=== PATIENT | female | born 1975 | race Two or more races ===

== ENCOUNTER 2016-06-27 02:12 | Inpatient (IN) | payer MEDICAID, SELFPAY ==
[2016-06-27] MEDS ORDERED: NS 1,000 ML IV ONE (02:29)
[2016-06-27] MEDS ORDERED: MORPHINE 4 MG/ML INJECTION IV ONE (02:29)
[2016-06-27] MEDS ORDERED: ONDANSETRON HCL 4 MG/2 ML VIAL IV ONE (02:29)
[2016-06-27 02:30] VITALS: BMI 27.2
--- NOTE | 2016-06-27 02:34 | EDPRACDOC ---
- General Information Information Source: Patient Mode Of Arrival: Car - History of Present Illness Onset: YESTERDAY Pain Location: Reports: Epigastric Pain Context: Reports: Spontaneous Pain Severity: Moderate Pain Quality: Reports: Sharp, Stabbing Pain Radiation: Reports: No Radiation Last Menstrual Period: 06/09/16 : No Adult Abdominal History: Reports: Similar Pain (dx) (CHOLELITHIASIS) Female Abdominal History: Denies: Abdominal Surgery, UTI, Ectopic, PID, Urolithiasis, Similar Pain (dx) Modifying Factors: improves with: Nothing Female Associated Signs & Symptoms: Reports: Nausea, Vomiting Oral Intake: Decreased Urinary Output: Normal <Deedee Hollingsworth - Last Filed: 06/27/16 02:32> <Pavan Colon - Last Filed: 06/27/16 05:11> <Sher Kelly - Last Filed: 06/27/16 10:59> - General Information Chief Complaint: Abdominal Pain Stated Complaint: ABDOMINAL PAIN Time Seen by Provider: 06/27/16 02:25 Allergies/Adverse Reactions: Allergies Allergy/AdvReac Type Severity Reaction Status Date / Time No Known Allergies Allergy Verified 06/27/16 02:26 - History of Present Illness HPI: PT PRESENTS WITH EPIGASTRIC PAIN THAT SHE STATES IS WORSENING. PT RECENTLY HAD AN ULTRASOUND OF HER ABDOMEN AND WAS FOUND TO HAVE GALLSTONE AND GALLBLADDER WALL THICKENING. PT STATES SHE HAS NAUSEA AND VOMITING (Deedee Hollingsworth) ED Past Medical History - History Reviewed Yes Nurses notes reviewed and agree except as marked - Patient Medical History Psychological History: Denies: Depression - Social Medical History Smoking Status: Never smoker <Deedee Hollingsworth - Last Filed: 06/27/16 02:32> EDM Review of Systems - Review of Systems ROS Negative Except as Marked: Yes All systems reviewed and were negative except as marked <Deedee Hollingsworth - Last Filed: 06/27/16 02:32> - Physical Exam Constitutional: Alert Oriented to: Time, Person, Place - HEENT Head: Normal ( normocephalic) Eye Exam: Normal (PERRL, EOMI, Sclera white) Oropharynx: Normal (Pharynx:Moist without exudate,Gums-no swelling) Nose: No Symptoms Reported (septum midline) Neck: Normal (FROM, trachea at midline) - Respiratory/Cardiovascular Respiratory: Normal - CTA (BBS clear to auscultation without adventitious sounds ) Cardiovascular: Normal (RRR without murmur, gallop or rub) - GI Auscultation: Normal (NABS) Palpation: Normal (Soft,No rebound or guarding, non distended) Tenderness: Moderate, Epigastric Macario's Sign: Negative Rectal Exam: Deferred - Musculoskeletal Back: Normal (Non-Tender) Extremities: Normal (Normal tone, Pulses 2+ No cyanosis or edema, FROM) - Integumentary Skin: Normal, Warm, Dry Lymphatics: Normal (no adenopathy) - Neurologic Memory Impaired: Normal Motor Function: Normal (Normal tone, Pulses 2+ No cyanosis or edema, FROM) Cranial Nerve: Normal (CN II-X11 intact sensation, strength 5/5) Cerebellar: Normal Mood Description: Normal Perception: Normal <Deedee Hollingsworth - Last Filed: 06/27/16 02:32> - Differential Diagnosis Cholecystitis, Cholelithiasis - Results All Results Reviewed and Normal except as Highlighted below: Yes <Deedee Hollingsworth - Last Filed: 06/27/16 02:32> - Re-evaluation Re-evaluation 1 Re-evaluation Time: 05:11 - Results 06/27/16 02:35 06/27/16 02:35 <Pavan Colon - Last Filed: 06/27/16 05:11> - Results 06/27/16 02:35 06/27/16 10:15 <Sher Kelly - Last Filed: 06/27/16 10:59> - Re-evaluation Re-evaluation [address] SANTOS, RECOMMENDS U/S ABDOMEN FOR BETTER IMAGING BECAUSE IF PATIENT HAS GALLSTONE THEY WOULD REQUIRE ERCP AND CURRENTLY THERE IS LIMITED ABILITY OF OUR HOSPITAL TO PERFORM THESE. SO PATIENT MAY REQUIRE TRANSFER TO ANOTHER FACILITY TO APPROPRIATELY CARE FOR HER. (Pavan Colon) - Results WBC 6.0 xk/uL (3.8-10.8) 06/27/16 02:35 RBC 4.78 xM/uL (4.20-5.40) 06/27/16 02:35 Hgb 13.3 g/dL (12.0-16.0) 06/27/16 02:35 Hct 38.9 % (36-47) 06/27/16 02:35 MCV 81 fL (81-99) 06/27/16 02:35 MCH 27.8 pg (27-32) 06/27/16 02:35 MCHC 34.1 g/dl (33-36) 06/27/16 02:35 RDW 13.3 % (11.5-14.5) 06/27/16 02:35 Plt Count 229 xk/uL (130-400) 06/27/16 02:35 MPV 8.3 fL (7.4-10.4) 06/27/16 02:35 Neut % (Auto) 72.6 % (45-76) 06/27/16 02:35 Lymph % (Auto) 17.9 % (17-44) 06/27/16 02:35 Allen % (Auto) 7.4 % (3-10) 06/27/16 02:35 Eos % (Auto) 1.6 % (0-5) 06/27/16 02:35 Baso % (Auto) 0.5 % (0-2) 06/27/16 02:35 Absolute Neuts (auto) 4.32 xk/uL (1.7-8.2) 06/27/16 02:35 Absolute Lymphs (auto) 1.02 xk/uL (0.65-4.75) 06/27/16 02:35 Sodium 141 mEq/L (137-146) 06/27/16 10:15 Potassium 3.9 mEq/L (3.5-5.1) 06/27/16 10:15 Chloride 107 mEq/L (98-107) 06/27/16 10:15 Carbon Dioxide 23 mMOL/L (22-33) 06/27/16 10:15 Anion Gap 15 mEq/L (8-16) 06/27/16 10:15 BUN 8 MG/DL (7-17) 06/27/16 10:15 Creatinine 0.60 MG/DL (0.52-1.04) 06/27/16 10:15 Estimated GFR (MDRD) > 60 mL/min (>=60) 06/27/16 10:15 Glucose 100 MG/DL (70-99) H 06/27/16 10:15 Calculated Osmolality 269 MOs/Kg (270-290) L 06/27/16 10:15 Calcium 8.6 MG/DL (8.4-10.2) 06/27/16 10:15 Total Bilirubin 2.8 MG/DL (0.2-1.3) H 06/27/16 10:15 AST 748 IU/L (14-36) H 06/27/16 10:15 ALT 891 IU/L (9-52) H 06/27/16 10:15 Alkaline Phosphatase 176 IU/L (38-126) H 06/27/16 10:15 Total Protein 7.6 G/DL (6.3-8.2) 06/27/16 10:15 Albumin 4.3 G/DL (3.5-5.0) 06/27/16 10:15 Lipase 175 U/L (23-300) 06/27/16 02:35 Urine Color Dk yellow 06/27/16 10:08 Urine Clarity Clear 06/27/16 10:08 Urine pH 6.0 (5.0-8.0) 06/27/16 10:08 Ur Specific [place] 1.020 (1.003-1.035) 06/27/16 10:08 Urine Protein 1+ (NEG/TRACE) H 06/27/16 10:08 Urine Glucose (UA) Neg (NEGATIVE) 06/27/16 10:08 Urine Ketones Neg (NEGATIVE) 06/27/16 10:08 Urine Occult Blood Neg (NEG/TRACE) 06/27/16 10:08 Urine Nitrite Neg (NEGATIVE) 06/27/16 10:08 Urine Bilirubin 2+ (NEGATIVE) H 06/27/16 10:08 Urine Urobilinogen 2 MG/DL (0-1) H 06/27/16 10:08 Ur Leukocyte Esterase Neg (NEGATIVE) 06/27/16 10:08 Urine RBC 2-5 (0-5) 06/27/16 10:08 Urine WBC 0-2 (0-5) 06/27/16 10:08 Ur Epithelial Cells 1+ 06/27/16 10:08 Urine Bacteria Few (NEG/FEW) 06/27/16 10:08 Urine Test Neg (NEGATIVE) 06/27/16 10:08 Lab Results 06/27/16 06/27/16 06/27/16 10:15 10:08 10:08 WBC RBC Hgb Hct MCV MCH MCHC RDW Plt Count MPV Neut % (Auto) Lymph % (Auto) Allen % (Auto) Eos % (Auto) Baso % (Auto) Absolute Neuts (auto) Absolute Lymphs (auto) Sodium 141 Potassium 3.9 Chloride 107 Carbon Dioxide 23 Anion Gap 15 BUN 8 Creatinine 0.60 Estimated GFR (MDRD) > 60 Glucose 100 H Calculated Osmolality 269 L Calcium 8.6 Total Bilirubin 2.8 H AST 748 H ALT 891 H Alkaline Phosphatase 176 H Total Protein 7.6 Albumin 4.3 Lipase Urine Color Dk yellow Urine Clarity Clear Urine pH 6.0 Ur Specific [place] 1.020 Urine Protein 1+ H Urine Glucose (UA) Neg Urine Ketones Neg Urine Occult Blood Neg Urine Nitrite Neg Urine Bilirubin 2+ H Urine Urobilinogen 2 H Ur Leukocyte Esterase Neg Urine RBC 2-5 Urine WBC 0-2 Ur Epithelial Cells 1+ Urine Bacteria Few Urine Test Neg 06/27/16 06/27/16 02:35 02:35 WBC 6.0 RBC 4.78 Hgb 13.3 Hct 38.9 MCV 81 MCH 27.8 MCHC 34.1 RDW 13.3 Plt Count 229 MPV 8.3 Neut % (Auto) 72.6 Lymph % (Auto) 17.9 Allen % (Auto) 7.4 Eos % (Auto) 1.6 Baso % (Auto) 0.5 Absolute Neuts (auto) 4.32 Absolute Lymphs (auto) 1.02 Sodium 140 Potassium 3.5 Chloride 103 Carbon Dioxide 24 Anion Gap 17 H BUN 10 Creatinine 0.60 Estimated GFR (MDRD) > 60 Glucose 106 H Calculated Osmolality 268 L Calcium 9.3 Total Bilirubin 3.2 H AST 935 H ALT 762 H Alkaline Phosphatase 157 H Total Protein 7.9 Albumin 4.4 Lipase 175 Urine Color Urine Clarity Urine pH Ur Specific [place] Urine Protein Urine Glucose (UA) Urine Ketones Urine Occult Blood Urine Nitrite Urine Bilirubin Urine Urobilinogen Ur Leukocyte Esterase Urine RBC Urine WBC Ur Epithelial Cells Urine Bacteria Urine Test (Pavan Colon) (Sher Kelly) - Departure Education/Counseling Given To: Patient Education/Counseling Given Regarding: Diagnosis, Treatment, Prognosis, Follow Up <Deedee Hollingsworth W - Last Filed: 06/27/16 02:32> <Pavan Colon - Last Filed: 01/07/17 05:11> - Departure Yes I personally saw and evaluated the patient. Disposition: Admit IP To This Hospital Decision to Admit Time: 10:58 Decision to admit date: 06/27/16 Decision to admit: from ED - Physician Consulted Surgery Time Called: :58 Provider Called: Franklyn Santos Time [employer]pape[employer] Helper Returned Call: 10:58 <Sher Kelly - Last Filed: 06/27/16 10:59> - Departure Condition: Stable Final Diagnosis: Cholelithiasis with obstruction Qualifiers: Cholecystitis presence: without cholecystitis Qualified Code(s): K80.21 - Calculus of gallbladder without cholecystitis with obstruction
[2016-06-27 02:52] LABS: AUTOMATED BASOPHIL 0.5 % (0-2); AUTOMATED EOSINOPHIL 1.6 % (0-5); AUTOMATED LYMPH 17.9 % (17-44); AUTOMATED MONOCYTE 7.4 % (3-10); AUTOMATED NEUTROPHIL 72.6 % (45-76); MPV 8.3 fL (7.4-10.4)
[2016-06-27] MEDS ORDERED: Pharmacy Review for Metformin - IV Contrast Given SCH (03:00)
[2016-06-27 03:03] LABS: BLOOD UREA NITROGEN 10 MG/DL (7-17); CALCIUM 9.3 MG/DL (8.4-10.2); CHLORIDE 103 mEq/L (98-107); GLUCOSE 106 MG/DL (70-99); TOTAL PROTEIN 7.9 G/DL (6.3-8.2)
[2016-06-27 03:19] LABS: CALCULATED OSMOLALITY 268 MOs/Kg (270-290); SODIUM LEVEL 140 mEq/L (137-146)
--- NOTE | 2016-06-27 03:46 | DIRPT ---
CLINICAL DATA: Acute onset of epigastric abdominal pain, nausea and vomiting. EXAM: CT ABDOMEN AND PELVIS WITH CONTRAST TECHNIQUE: Multidetector CT imaging of the abdomen and pelvis was performed using the standard protocol following bolus administration of intravenous contrast. CONTRAST: 100 mL of Isovue 370 IV contrast COMPARISON: Abdominal ultrasound performed 05/19/2016 FINDINGS: Minimal bibasilar atelectasis is noted. The liver and spleen are unremarkable in appearance. The gallbladder is within normal limits. The pancreas and adrenal glands are unremarkable. The kidneys are unremarkable in appearance. There is no evidence of hydronephrosis. No renal or ureteral stones are seen. No perinephric stranding is appreciated. No free fluid is identified. The small bowel is unremarkable in appearance. The stomach is within normal limits. No acute vascular abnormalities are seen. The appendix is normal in caliber, without evidence of appendicitis. The colon is unremarkable in appearance. The bladder is mildly distended and grossly remarkable. The uterus is unremarkable in appearance, with an intrauterine device noted in expected position at the fundus of the uterus. The ovaries are grossly symmetric. No suspicious adnexal masses are seen. No inguinal lymphadenopathy is seen. No acute osseous abnormalities are identified. Facet disease is noted at the lower lumbar spine. IMPRESSION: Unremarkable contrast-enhanced CT of the abdomen and pelvis. Electronically Signed By: Jc Allison M.D. On: 06/27/2016 03:43
--- NOTE | 2016-06-27 07:45 | DIRPT ---
CLINICAL DATA: Patient with right upper quadrant abdominal pain. Elevated LFTs. EXAM: US ABDOMEN LIMITED - RIGHT UPPER QUADRANT COMPARISON: None. FINDINGS: Gallbladder: The gallbladder is full of shadowing echogenic stones. No gallbladder wall thickening. No pericholecystic fluid. Negative sonographic Macario's sign. Common bile duct: Diameter: 3 mm Liver: No focal lesion identified. Within normal limits in parenchymal echogenicity. IMPRESSION: Large amount of shadowing echogenic stones demonstrated within the gallbladder lumen. No secondary signs to suggest acute cholecystitis. Electronically Signed By: Woody Pedro M.D. On: 06/27/2016 07:42
[2016-06-27 10:27] LABS: LEUKOCYTES/URINE NEG (NEGATIVE); NITRITE/URINE NEG (NEGATIVE); URINE OCCULT BLOOD NEG (NEG/TRACE); WBC/URINE 0-2 (0-5)
[2016-06-27 10:49] LABS: BLOOD UREA NITROGEN 8 MG/DL (7-17); CALCIUM 8.6 MG/DL (8.4-10.2); CALCULATED OSMOLALITY 269 MOs/Kg (270-290); CHLORIDE 107 mEq/L (98-107); GLUCOSE 100 MG/DL (70-99); SODIUM LEVEL 141 mEq/L (137-146); TOTAL PROTEIN 7.6 G/DL (6.3-8.2)
[2016-06-27] MEDS ORDERED: ACETAMINOPHEN 650 MG SUPP PR PRN (12:23)
[2016-06-27] MEDS ORDERED: ACETAMINOPHEN 325 MG/TAB TABLET PO PRN (12:23)
[2016-06-27] MEDS ORDERED: SIMETHICONE 80 MG TAB PO PRN (12:23)
[2016-06-27] MEDS ORDERED: MAGNESIUM HYDROXIDE 30 ML BOTTLE PO PRN (12:23)
[2016-06-27] MEDS ORDERED: MORPHINE 2 MG/ML INJECTION IV PRN (12:23)
[2016-06-27] MEDS ORDERED: PROMETHAZINE 25 MG/ML VIAL IV PRN (12:23)
[2016-06-27] MEDS ORDERED: DIPHENHYDRAMINE 25 MG CAP PO PRN (12:23)
[2016-06-27] MEDS ORDERED: Albuterol/Ipratropium Neb 3 ML NEB NEB PRN (12:23)
[2016-06-27] MEDS ORDERED: Aluminum;Magnesium;Simethicone 30 ML UDC PO PRN (12:23)
--- NOTE | 2016-06-27 13:04 | HISTPHYS ---
- Chief Complaint epigastric abdominal pain - History of Present Illness The patient is a 41 year old female with epigastric abdominal pain that started on June 26, 2016 in the evening. The patient reports that she had associated nausea and vomiting. She denies previous occurrences. She reports that she has no pain currently. - Medical History Cardiac History: Denies: No Significant History, Coronary Artery Disease, Atrial Fibrillation, Hypertension, Congestive Heart Failure, Heart Attack, Cardiac Catheterization, CABG, Stress Test, Hypercholesterolemia, Internal Defibrillator, Pacemaker, Cardiomyopathy, Valvular Heart Disease, Syncope, SVT, Other Respiratory History: Denies: No Significant History, Asthma, COPD, Bronchitis, Asbestosis, Aspiration Pneumonia, Cough, Chronic Bronchitis, Pneumonia, Emphysema, Pulmonary Embolism, Other GI/ History: Denies: No Significant History, Renal Disease, Renal Failure, Renal (Kidney) Cancer, Kidney (Renal Surgery), Urinary Tract Infection, Kidney Stones, Liver Failure, Gastroesophageal Reflux, Ulcer, IBD, Diverticulosis, Pancreatitis, BPH, PMH GI Yes/No Other Musculoskeletal History: Denies: No Significant History, Arthritis, Gout, Rheumatoid Arthritis, Osteoarthritis, Other Systemic History: Denies: No Significant History, Cancer, Anemia, Diabetes, Hyperthyroidism, Hypothyroidism, HIV, Lupus, Other Neurological History: Denies: No Significant History, Cerebrovascular Accident, Seizures, Migraine, Dementia, Epilepsy, Guillian-Chandler Syndrome, Parkinson's, Metabolic encephalopathy, Multiple Sclerosis, Myasthenia Gravis, Toxic Encephalopathy, Other - Surgical History Denies: No Significant History, Appendectomy, Cholecystectomy, CABG, Hysterectomy, Angioplasty, Cardiac Catheterization, Hernia Surgery, Tonsillectomy, Tonsillectomy/Adnoidectomy, Other - Medictions/Allergies Allergies No Known Allergies Allergy (Verified 06/27/16 02:26) Current Medication List: Reviewed Home Medications No Home Medications 06/27/16 - Family History Denies: No Significant History, Hypertension, Diabetes, Cancer, Stroke, Cardiac Disorders, Respiratory Disorders, Renal Disease, Blood Disorders, Other - Social History Travel Outside of [place] in the Last 3 Months?: No Lives: With Family Smoking Status: Never smoker Social History: Denies: Amphetamine Use, Alcohol Use, Barbiturate Use, Benzodiazipine Use, Cocaine Use, Heroin Use, Marijuana Use, Methadone Use, MDMA (Ecstasy) Use, Substance Use Disorder - Review of Systems Yes All systems reviewed and were negative except as marked (twelve systems reviewed with the patient.) - Physical Exam Vital Signs: Initial Vitals Temperature 97.4 F L 06/27/16 02:26 Pulse Rate 66 06/27/16 02:26 Respiratory Rate 20 06/27/16 02:26 Blood Pressure 121/59 L 06/27/16 02:26 Pulse Oxygen Saturation 96 06/27/16 02:26 Constitutional: Alert (Awake, Fully oriented. Normal and appropriate affect.Well appearing. Well nourished.), No apparent distress Oriented to: Time, Person, Place - HEENT Head: Normal (normocephalic, atraumatic.), Other (No cervical lymphadenopathy. No supraclavicular lymphadenopathy. Neck: No palpable mass, supple , trachea midline.) Eye: Normal (pupils equal, reactive to light, and round; EOMI, Sclera white) Oropharynx: Normal (Pharynx: Moist without exudate,Gums-no swelling, No oropharyngeal lesions or erythema, Mucous membranes are dry.) ENT EAC: Normal (No oropharyngeal lesions or erythema. Mucous membranes are dry. ) Nose: No Symptoms Reported (septum midline, Nares patent, without discharge or bleeding.) Respiratory: Normal - CTA (Clear to auscultation bilaterally. No wheezing, rales , rhonchi. Chest wall movements are symmetric. No use of accessory muscles to breathe.) Cardiovascular: Normal (RRR , Normal S1, S2. No murmurs, rubs, or gallops. PMI non-displaced. Carotids: no carotid bruits. No bradycardia or tachycardia. DP pulses 2+ bilaterally.) - GI Auscultation: Normal (normal active sounds) Palpation: Normal (Soft,non distended,nontender. No hepatosplenomegaly.) Tenderness: Mild, Epigastric Macario's Sign: Negative - Exam Deferred: Yes - Musculoskeletal Back: Normal (Non-Tender) Extremities: Normal (Normal tone, DP pulses 2+ bilaterally, No cyanosis or edema bilaterally, FROM bilaterally.) - Integumentary Skin: Normal (Clean, dry, and intact. No rashes. No lesions.) Lymphatics: Normal (No cervical lymphadenopathy. No supraclavicular lymphadenopathy.) - Neurologic Memory Impaired: Normal Motor Function: Normal (Motor 5/5 throughout.Normal tone, Pulses 2+ No cyanosis or edema, FROM) Cranial Nerve: Normal (CN II-XII intact sensation, strength 5/5) Cerebellar: Normal (Babinski: toes downgoing bilaterally. Intact Finger to nose. Sensory grossly intact to light touch. Intact rapid alternating movements bilaterally. No pronator drift.) Mood Description: Normal (Fully oriented. Normal and appropriate affect.) Perception: Normal (Normal and appropriate affect.) - Lab Results 06/27/16 02:35 06/27/16 10:15 - Diagnostic Findings Final Report CLINICAL DATA: Patient with right upper quadrant abdominal pain. Elevated LFTs. EXAM: US ABDOMEN LIMITED - RIGHT UPPER QUADRANT COMPARISON: None. FINDINGS: Gallbladder: The gallbladder is full of shadowing echogenic stones. No gallbladder wall thickening. No pericholecystic fluid. Negative sonographic Macario's sign. Common bile duct: Diameter: 3 mm Liver: No focal lesion identified. Within normal limits in parenchymal echogenicity. IMPRESSION: Large amount of shadowing echogenic stones demonstrated within the gallbladder lumen. No secondary signs to suggest acute cholecystitis. Electronically Signed By: Woody Pedro M.D. On: 06/27/2016 07:42 - Assessment/Plan (1) Cholelithiasis with chronic cholecystitis K80.10 - CALCULUS OF GALLBLADDER W CHRONIC CHOLECYST W/O OBSTRUCTION Chronic Present on Admission: Yes gallbladder Comment: We will plan for laparoscopic cholecystectomy with intraoperative cholangiogram , possible open incision when acute infection has resolved. The current treatment plan was discussed with the patient and the patient's . All questions were answered. They voiced understanding and agreement. Case Care Discussed with: Patient, Family
[2016-06-27] MEDS: LR 1,000 ML IV SCH ×2 (13:44→23:14)
[2016-06-27] MEDS: ERTAPENEM 1 GM in NS 100 ML IV SCH (13:44)
[2016-06-27] MEDS ORDERED: Vaccine Screening Complete SCH (14:00)
[2016-06-27] MEDS: ONDANSETRON HCL 4 MG/2 ML VIAL IV PRN (15:12)
[2016-06-27] MEDS: OXYCODONE HCL 5 MG TABLET PO PRN (18:36)
[2016-06-27] MEDS: IBUPROFEN 600 MG TAB PO PRN (19:17)
[2016-06-28] MEDS ORDERED: FLU VACCINE (Afluria) 0.5 ML DOSE IM ONE (08:00)
[2016-06-28] MEDS: LR 1,000 ML IV SCH ×3 (11:07→22:09)
[2016-06-28] MEDS: ERTAPENEM 1 GM in NS 100 ML IV SCH (14:49)
--- NOTE | 2016-06-28 17:42 | PCM.SURGRO ---
- Subjective Chief Complaint: no complaints Hospital Day #: 2 (cholecystitis with cholelithiasis) Patient: Reports: Feels better (Patient reports that she feels much better. She denies abdominal pain.), Pain is less, Tolerating Regular Diet, Voiding without difficulty, No Bowel Movement, Afebrile, Ambulating in Room. Denies: Nausea, Vomiting, Shortness of breath - Objective / Physical Exam Vital Signs: Temperature: 98.0 F (06/28/16 16:56) HR: 56 (06/28/16 16:56)RR: 20 (06/28/16 16: 56) BP: 102/66 (06/28/16 16:56)Pulse Ox: 94 (06/28/16 16:56) General: Alert, Oriented x3, Cooperative, No acute distress HEENT: Normal, Anicteric Sclera, Mucous membr. moist/pink Respiratory: Normal - CTA Cardiovascular: Regular rate and rhythm Gastrointestinal: Soft, Bowel Sounds. negative: Distended, Tender, Guarding, Firm, Rigid, Hernia Extremities: negative: Swelling, Edema Psych/Mental Status: Appropriate, Normal Affect, Cooperative. negative: Agitated, Anxious Neurological: Normal speech Lymphatics: Normal - Assessment and Plan (1) Cholelithiasis with chronic cholecystitis Chronic K80.10 - CALCULUS OF GALLBLADDER W CHRONIC CHOLECYST W/O OBSTRUCTION Present on Admission: Yes gallbladder Comment/Plan: We will plan for laparoscopic cholecystectomy with intraoperative cholangiogram , possible open incision. The indications, benefits and risks associated with the operation were discussed with the patient and the patient's . All questions were answered. We will plan for follow up comprehensive metabolic panel in the morning to evaluate for residual choledocholithiasis.
[2016-06-29] MEDS: LR 1,000 ML IV SCH ×3 (07:28→17:48)
[2016-06-29 07:41] LABS: BLOOD UREA NITROGEN 6 MG/DL (7-17); CALC CORRECTED 9.6 MG/DL (8.4-10.2); CALCIUM 9.1 MG/DL (8.4-10.2); CALCULATED OSMOLALITY 267 MOs/Kg (270-290); CHLORIDE 105 mEq/L (98-107); GLUCOSE 90 MG/DL (70-99); SODIUM LEVEL 140 mEq/L (137-146); TOTAL PROTEIN 6.4 G/DL (6.3-8.2)
[2016-06-29] MEDS ORDERED: FLU VACCINE (Afluria) 0.5 ML DOSE IM ONE (08:00)
--- NOTE | 2016-06-29 12:08 | PCM.SURGRO ---
- Subjective Chief Complaint: no complaints Hospital Day #: 3 (cholecystitis with cholelithiasis) Patient: Reports: Feels better (Patient denies abdominal pain currently.), Pain is less, Tolerating liquids well, Voiding without difficulty, No Flatus, Afebrile, Ambulating in Room. Denies: Nausea, Vomiting, Shortness of breath - Objective / Physical Exam Vital Signs: Temperature: 98.1 F (06/29/16 09:13) HR: 59 (06/29/16 09:13)RR: 20 (06/29/16 09: 13) BP: 109/68 (06/29/16 09:13)Pulse Ox: 96 (06/29/16 09:13) General: Alert, Oriented x3, Cooperative, No acute distress HEENT: Normal, Mucous membr. moist/pink Respiratory: Normal - CTA Cardiovascular: Regular rate and rhythm Gastrointestinal: Soft, Bowel Sounds. negative: Distended, Tender, Guarding, Firm, Rigid, Hernia Extremities: negative: Swelling, Clubbing Psych/Mental Status: Appropriate, Normal Affect, Cooperative. negative: Agitated, Anxious Neurological: Normal speech Skin: Warm,Dry and Intact, No rashes - Assessment and Plan (1) Cholelithiasis with chronic cholecystitis Chronic K80.10 - CALCULUS OF GALLBLADDER W CHRONIC CHOLECYST W/O OBSTRUCTION Present on Admission: Yes gallbladder Comment/Plan: We will plan for laparoscopic cholecystectomy with intraoperative cholangiogram , possible open incision. The indications, benefits and risks associated with the operation were discussed with the patient. All questions were answered. Informed consent was obtained. - Review of Systems Yes All systems reviewed and were negative except as marked (twelve systems reviewed with the patient.)
[2016-06-29] MEDS: ERTAPENEM 1 GM in NS 100 ML IV SCH (13:14)
[2016-06-30] MEDS: LR 1,000 ML IV SCH ×3 (05:29→15:41)
[2016-06-30] MEDS ORDERED: BUPIVACAINE 0.5% 30 ML VIAL ONE (08:39)
[2016-06-30] MEDS ORDERED: ISOVUE-300 (61%) 50 ML ONE (08:39)
[2016-06-30] MEDS ORDERED: FENTANYL 100 MCG/2 ML VIAL IV PRN (08:44)
[2016-06-30] MEDS ORDERED: ONDANSETRON HCL 4 MG ODT TAB PO PRN (08:44)
[2016-06-30] MEDS ORDERED: ONDANSETRON HCL 4 MG/2 ML VIAL IV PRN (08:44)
[2016-06-30] MEDS ORDERED: hydrALAZINE 20 MG/ML VIAL IV PRN (08:44)
[2016-06-30] MEDS ORDERED: HYDROmorphone 1 MG INJECTION IV PRN ×2 (08:44)
[2016-06-30] MEDS ORDERED: MEPERIDINE 25 MG/ML TUBEX IV PRN (08:44)
[2016-06-30] MEDS ORDERED: PROMETHAZINE 25 MG/ML VIAL IV PRN ×2 (08:44)
[2016-06-30] MEDS ORDERED: LABETALOL 20 MG/4 ML SYRINGE IV PRN (08:44)
--- NOTE | 2016-06-30 08:45 | SC.ANESPOS ---
Post-Anesthesia Note LOC: [place] on Calling Post-Anesthesia Assessment: Awake, Returned to Baseline, Hemodynamically Stable , Pain Control Adequate Phase I & II Recovery Complete: Yes Apparent Anesthesia Complication: No : N - Vital Signs Blood Pressure: 105/60 Pulse: 52 Resp Rate: 20 O2 Sat: 96 Temp: 98.1 F
--- NOTE | 2016-06-30 09:27 | HIM.ANES ---
Anesthesia Evaluation & Plan - Focused Review of Systems Now: No Cardiac History: No: Hx Hypertension, Hx Heart Attack, Hx Cardiac Catheterization, Hx Angioplasty, Hx Pacemaker, Hx Congestive Heart Failure, Hx Coronary Artery Bypass Graft, Hx of SVT Respiratory: No: Hx Asthma, Hx Emphysema, Hx Chronic Obstructive Pulmonary Disease (COPD) , Hx Pneumonia Gastrointestinal: No: Hx Pancreatitis, Hx Diverticulosis Genitourinary: No: Hx Renal Disease, Hx Renal Failure Neurological/Musculoskeletal: No: HX Cerebrovascular Accident, Hx Dementia, Hx Seizures, Hx Syncope Psychological: No Hx Depression Endocrine: No: Hx Hyperthyroidism, Hx Hypothyroidism Blood/Autoimmune: No: Hx Anemia Smoking Status: Never smoker Past Social History: Denies: Amphetamine Use, Alcohol Use, Barbiturate Use, Benzodiazipine Use, Cocaine Use, Heroin Use, Marijuana Use, Methadone Use, MDMA (Ecstasy) Use, Substance Use Disorder Hx Stress Test (date): No Hx Echocardiogram (date): No Hx Chest Xray (date): No Surgical History: No: CABG, T&A, Appendectomy, Cholecystectomy, Other - Focused Physical Exam NPO since: Midnight Mallampati: Class II Thyromental Distance: Greater than 3 Neck: Full Range of Motion Dental: Normal - no significant findings Cardiovascular/Chest: Normal Respiratory: Lungs clear Any problems with anesthesia, including nausea and vomiting?: No Any relatives with a history of Malignant Hyperthermia?: No Does patient have a history of Malignant Hyperthermia?: No Beta Merly given (if appropriate): N/A Other: Problem List Problem Status Onset Cholelithiasis with obstruction Acute Cholelithiasis with chronic cholecystitis Chronic PT/PTT/INR/ Urine Test Neg (NEGATIVE) 06/27/16 10:08 CBC/BMP/Other 06/29/16 07:00 Allergies Allergy/AdvReac Type Severity Reaction Status Date / Time No Known Allergies Allergy Verified 06/27/16 02:26 Home Medications Medication Instructions Recorded Last Taken Type No Home Medications 06/27/16 Unknown History Height and Weight Patient's weight 148 lb 8 oz Weight (Calculated Kilograms) 67.358 Vital Signs Temperature 98.4 F 06/30/16 08:47 Pulse Rate 64 06/30/16 08:47 Respiratory Rate 18 06/30/16 08:47 Blood Pressure 105/61 06/30/16 08:47 Pulse Oxygen Saturation 99 06/30/16 08:47 - Anesthetic Plan Anesthesia Type: General ASA Class: 2 -: I have examined this patient and reviewed the medical record. The patient has been assessed prior to anesthesia. Risks and benefits of anesthesia and anesthetic technique options have been discussed and all questions answered. The patient accepts the risk and desires me to proceed with the planned anesthetic.
[2016-06-30] MEDS ORDERED: METOCLOPRAMIDE 10 MG/2 ML VIAL IV ONE (10:00)
[2016-06-30] MEDS ORDERED: ROCURONIUM 50 MG/5 ML VIAL IV ONE (10:00)
[2016-06-30] MEDS ORDERED: LIDOCAINE 100 MG PFS IV ONE (10:00)
[2016-06-30] MEDS ORDERED: PROPOFOL 200 MG/20 ML VIAL IV ONE (10:00)
[2016-06-30] MEDS ORDERED: GLYCOPYRROLATE 1 MG VIAL IM ONE (10:00)
[2016-06-30] MEDS ORDERED: ONDANSETRON HCL 4 MG/2 ML VIAL IV ONE (10:00)
[2016-06-30] MEDS ORDERED: FENTANYL 250 MCG/5 ML VIAL IV ONE (10:00)
[2016-06-30] MEDS ORDERED: SUCCINYLCHOLINE 20 MG/1 ML INJ 10 ML MDV IV ONE (10:00)
[2016-06-30] MEDS ORDERED: NEOSTIGMINE 1 MG/1 ML (1:1000) INJ 10 ML MDV IM ONE (10:00)
[2016-06-30] MEDS ORDERED: KETOROLAC TROMETH 30 MG/ML VIAL IM ONE (10:00)
[2016-06-30] MEDS ORDERED: MIDAZOLAM 2 MG/2 ML VIAL IV ONE (10:00)
[2016-06-30] MEDS ORDERED: DEXAMETHASONE 4 MG/ML VIAL IV ONE (10:00)
--- NOTE | 2016-06-30 12:09 | HIMOPRPT ---
DATE OF PROCEDURE: 06/30/16 PREOPERATIVE DIAGNOSIS: Chronic cholecystitis with cholelithiasis. POSTOPERATIVE DIAGNOSIS: Chronic cholecystitis with cholelithiasis. PROCEDURE: Laparoscopic cholecystectomy with intraoperative cholangiogram SURGEON: Franklyn Driver DO. ANESTHESIA: General endotracheal. ANESTHESIOLOGIST: Dr. Ravindra Martinez SPECIMEN: Gallbladder and contents. SPONGE COUNT: Correct. PACKINGS AND DRAINS: 19 macedonian Joaquim drain in the right upper quadrant PATIENT CONDITION: Stable. ESTIMATED BLOOD LOSS: 5 ml INDICATIONS: This is a 41-year-old female with right upper quadrant and epigastric abdominal pain. Ultrasound demonstrated gallstones. It was recommend to this patient, laparoscopic cholecystectomy with intraoperative cholangiogram, possible open incision. The risks associated with operation were discussed with the patient and the patient's family in detail. These risks include, but not limited to bleeding, infection, port site herniation, injury to intra-abdominal blood vessels, injury to small and large intestine, deep vein thrombosis, resultant pulmonary embolism, perioperative cardiac and respiratory morbidity and mortality, injury to common bile duct resulting in need for reoperation, injury to intrahepatic bile duct resulting in need for percutaneous drainage, possible endoscopic retrograde cholangiopancreatography. All questions were answered and informed consent was obtained. FINDINGS: Gallbladder was moderately distended. Minimal omental adhesions of the gallbladder. On intraoperative cholangiogram, no contrast passage past the cystic duct. The liver was very large with a large left lobe of the liver. OPERATIVE AND TECHNIQUE: With consent, the patient was taken to the operative suite at [facility] and placed in supine position. General anesthesia was induced. Having successful completion of this, the anterior abdomen was sterilely prepped and draped in usual fashion. All members of surgical team were in agreement of correct patient and correct procedure. Curvilinear incision was made inferior to the umbilicus, carried down to the fascial layers entering the peritoneal cavity under direct visualization. It was insufflated to 15 mmHg and kept at or below this pressure at all times during the course of surgery. A total of 4 accessory ports were placed in the right upper quadrant each 5 mm in size, each placed under laparoscopic visualization. An additional 5 mm accessory port was placed in the left upper quadrant to place a liver retractor as the patient had a very large left lobe of the liver that was obstructing the view of the gallbladder. Gallbladder was grasped and elevated. Omental adhesions were removed utilizing gentle blunt dissection staying very close to the gallbladder. Cystic duct and cystic artery were circumferentially isolated. Gallbladder cystic duct junction was clearly visualized. Intraoperative cholangiogram was performed with Phani cholangiocatheter, findings as described above. Once again, the cystic duct circumferentially isolated. Three metallic clips were placed across then transected, leaving 2 on the stump and 1 on the specimen. Cystic artery was circumferentially isolated. Three metallic clips were placed across and then transected, leaving 2 on the stump and 1 on the specimen. Hemostasis was excellent. Gallbladder was removed from liver bed utilizing electrocautery, placed in Endobag, removed the body and passed off as specimen. Of note, the fascial incision at the umbilicus required extension superiorly to remove the very large gallbladder filled with gallstones. Right upper quadrant was vigorously irrigated and aspirated dry. Clips were visualized in place. No evidence of arterial or venous bleeding. No evidence of bile duct leakage. A 19 macedonian Joaquim drain was placed in the right upper quadrant as there was incomplete cholangiogram. Accessory port sites were hemostatic on removal. CO2 gas was allowed to escape in the peritoneal cavity. Fascia was closed with [id number] 0 Vicryl sutures times x2. Skin was closed with 4-0 Monocryl subcuticular stitch. After infiltration of anesthetic, Dermabond was applied. Sterile occlusive dressing was applied over this. Anesthesia was reversed. Mrs. Jackson Fowler was taken to recovery, having tolerated the procedure well.
--- NOTE | 2016-06-30 12:10 | HIMOPRPT ---
DATE OF PROCEDURE: 06/30/16 Preoperative diagnosis: Cholelithiasis with chronic cholecystitis Postoperative diagnosis: Cholelithiasis with chronic cholecystitis, final pathology pending Procedure: Intraoperative cholangiography under fluoroscopic guidance Surgeon: Franklyn Driver DO Anesthesia: General ANESTHESIOLOGIST: Dr. Ravindra Martinez Blood loss: None Packings and drains: None Complications: None Operative findings and technique: During the course of laparoscopic cholecystectomy by Dr. Driver, intraoperative cholangiography was performed under fluoroscopic guidance. Fluoroscopic images reveal a cholangiocatheter on the infundibulum of the gallbladder. Contrast dye is noted to fill the infundibulum. Contrast dye does not pass out of the gallbladder. Impression: Intraoperative cholangiography as above.
[2016-06-30] MEDS ORDERED: FENTANYL 100 MCG/2 ML VIAL ONE (13:19)
[2016-06-30] MEDS: FENTANYL 100 MCG/2 ML VIAL IV PRN ×2 (13:22→13:33)
[2016-06-30] MEDS: ERTAPENEM 1 GM in NS 100 ML IV SCH (14:10)
[2016-06-30] MEDS: ONDANSETRON HCL 4 MG/2 ML VIAL IV PRN (14:46)
--- NOTE | 2016-06-30 16:03 | DIRPT ---
CLINICAL DATA: Cholelithiasis EXAM: INTRAOPERATIVE CHOLANGIOGRAM TECHNIQUE: Cholangiographic images from the C-arm fluoroscopic device were submitted for interpretation post-operatively. Please see the procedural report for the amount of contrast and the fluoroscopy time utilized. COMPARISON: Ultrasound 06/27/2016 FINDINGS: Multiple filling defects in the lumen of the gallbladder. No significant opacification of the intra or extrahepatic biliary tree beyond the cystic duct. : 1. Non opacification of the intra or extrahepatic biliary tree, such that choledocholithiasis cannot be excluded. Electronically Signed By: Rashaun Chua M.D. On: 06/30/2016 16:00
[2016-06-30] MEDS: IBUPROFEN 600 MG TAB PO PRN (19:35)
[2016-06-30] MEDS: OXYCODONE HCL 5 MG TABLET PO PRN (21:16)
[2016-07-01] MEDS: LR 1,000 ML IV SCH (02:24)
[2016-07-01 03:28] VITALS: TEMP 98.1
[2016-07-01 06:51] LABS: AUTOMATED BASOPHIL 0.2 % (0-2); AUTOMATED EOSINOPHIL 0.1 % (0-5); AUTOMATED LYMPH 20.5 % (17-44); AUTOMATED MONOCYTE 5.9 % (3-10); AUTOMATED NEUTROPHIL 73.3 % (45-76); MPV 8.1 fL (7.4-10.4)
[2016-07-01 07:39] LABS: BLOOD UREA NITROGEN 7 MG/DL (7-17); CALC CORRECTED 9.6 MG/DL (8.4-10.2); CALCIUM 8.7 MG/DL (8.4-10.2); CALCULATED OSMOLALITY 263 MOs/Kg (270-290); CHLORIDE 105 mEq/L (98-107); GLUCOSE 87 MG/DL (70-99); SODIUM LEVEL 138 mEq/L (137-146); TOTAL PROTEIN 5.9 G/DL (6.3-8.2)
[2016-07-01] MEDS: OXYCODONE HCL 5 MG TABLET PO PRN (07:50)
[2016-07-01] MEDS: IBUPROFEN 600 MG TAB PO PRN (08:46)
[2016-07-01 12:22] VITALS: BP 84/50; PULSE 50
[2016-07-01] MEDS ORDERED: NS 500 ML IV ONE (12:24)
--- NOTE | 2016-07-01 12:27 | PCM.DCS92 ---
- Final/Secondary Discharge Diagnosis (1) Cholelithiasis with chronic cholecystitis Chronic K80.10 - CALCULUS OF GALLBLADDER W CHRONIC CHOLECYST W/O OBSTRUCTION Present on Admission: Yes gallbladder Discharge Disposition: Home Discharge Condition: Improved Cognitive Discharge Status: Unimpaired Fuctional Discharge Status: Independent Physician Follow up/Referrals: Franklyn Driver DO [Staff Physician] - One Week New Prescriptions: Oxycodone Immediate Release [Oxy-Ir] 5 mg PO Q6H PRN #40 tab PRN Reason: Pain Promethazine [Phenergan] 25 mg PO Q4H PRN #30 tab PRN Reason: Nausea/Vomiting Additional Instructions: empty and record drain output daily. incentive spirometer every hour while awake Diet at Discharge: As Tolerated, Regular Activity: No Heavy Lifting, No Driving Call Office For: Worsening Symptoms, Wound is Draining Pus, Fever over 101 F, Wound is Painful, Wound is Red, Pain Uncontrolled By Meds, Other (See Details) ( chest pain or difficulty breathing) Discontinue use of:: Alcohol, All Illegal Substances, All Types of Tobacco - DC Summary Notes Hospital Course Note:: Discharge summary on patient named MINO COTTO admitted to [facility] on 06/27/16 by Franklyn Driver DO. The patient was diagnosed with cholecystitis with cholelithiasis. Please see history and physical. The patient underwent laparoscopic cholecystectomy with intraoperative cholangiogram. Please see operative report for full details. Postoperatively, the patient's diet and activity were slowly advanced, which she was able to tolerate. Full and careful discharge instructions were discussed with the patient. All questions were answered. Date of discharge is 07/01/16. Discharge condition: stable Final discharge diagnosis: cholecystitis with cholelithiasis Wound Care Surgical Site: Yes May Shower Starting:: 07/01/16 Remove Clear Dressing In How Many Days?: 7 Remove Gauze Dressing in How Many Days?: 7 Ability To Perform Care (if applicable): Yes - Physical Exam Vital Signs: Initial Vitals Temperature 97.4 F L 06/27/16 02:26 Pulse Rate 66 06/27/16 02:26 Respiratory Rate 20 06/27/16 02:26 Blood Pressure 121/59 L 06/27/16 02:26 Pulse Oxygen Saturation 96 06/27/16 02:26 Constitutional: Alert (Awake, Fully oriented. Normal and appropriate affect.Well appearing. Well nourished.), No apparent distress Oriented to: Time, Person, Place - HEENT Head: Normal (normocephalic, atraumatic.), Other (No cervical lymphadenopathy. No supraclavicular lymphadenopathy. Neck: No palpable mass, supple , trachea midline.) Eye: Normal (pupils equal, reactive to light, and round; EOMI, Sclera white) Oropharynx: Normal (Pharynx: Moist without exudate,Gums-no swelling, No oropharyngeal lesions or erythema, Mucous membranes are dry.) TMJ: Normal Nose: No Symptoms Reported (septum midline, Nares patent, without discharge or bleeding.) Respiratory: Normal - CTA (Clear to auscultation bilaterally. No wheezing, rales , rhonchi. Chest wall movements are symmetric. No use of accessory muscles to breathe.) Cardiovascular: Normal (RRR , Normal S1, S2. No murmurs, rubs, or gallops. PMI non-displaced. Carotids: no carotid bruits. No bradycardia or tachycardia. DP pulses 2+ bilaterally.) - GI Auscultation: Normal (normal active sounds) Palpation: Normal (Soft,non distended,nontender. No hepatosplenomegaly.), Other (Drain is draining serosanguinous fluid) Tenderness: Non tender (No rebound or guarding) Macario's Sign: Negative - Musculoskeletal Back: Normal (Non-Tender) Extremities: Normal (Normal tone, DP pulses 2+ bilaterally, No cyanosis or edema bilaterally, FROM bilaterally.) - Integumentary Skin: Normal (Clean, dry, and intact. No rashes. No lesions.) Lymphatics: Normal (No cervical lymphadenopathy. No supraclavicular lymphadenopathy.) - Neurologic Memory Impaired: Normal Motor Function: Normal (Motor 5/5 throughout.Normal tone, Pulses 2+ No cyanosis or edema, FROM) Cranial Nerve: Normal (CN II-XII intact sensation, strength 5/5) Cerebellar: Normal (Babinski: toes downgoing bilaterally. Intact Finger to nose. Sensory grossly intact to light touch. Intact rapid alternating movements bilaterally. No pronator drift.) Mood Description: Normal (Fully oriented. Normal and appropriate affect.) Perception: Normal (Normal and appropriate affect.)
[2016-07-01] MEDS: ONDANSETRON HCL 4 MG/2 ML VIAL IV PRN (12:46)
== END 2016-07-01 14:45 | disposition home or self-care (01) | DRG 419 ==
LOC: ED 02:12 → MPS3 11:11 → MASU 06-30 16:23
PROVIDERS: ADMIT Surgery; ATTEND Surgery
PROC: 0FT44ZZ Resection of Gallbladder, Percutaneous Endoscopic Approach (ICD-10-PCS; principal; 2016-06-27)
PROC: BF131ZZ Fluoroscopy of Gallbladder and Bile Ducts using Low Osmolar Contrast (ICD-10-PCS; 2016-06-27)
DX: K80.10 Calculus of gallbladder with chronic cholecystitis without obstruction (principal)
CPT/HCPCS: 36415; 74177; 74300; 76705; 80053; 81001; 81025; 83690; 85025; 90656; 96361; 96374; 96375; 99284; A9698; G0237; J0330; J1100; J1335; J1885; J2001; J2250; J2270; J2405; J2710; J2765; J3010; J3490; J7030

== ENCOUNTER 2016-07-14 17:36 | Emergency (ER) | payer SELFPAY ==
[2016-07-14 17:55] VITALS: TEMP 97.5; BMI 26.9
--- NOTE | 2016-07-14 18:08 | EDPRACDOC ---
- General Information Chief Complaint: Abdominal Pain Stated Complaint: PAIN AT DRAIN SITE S/P SURGERY 07/07 Time Seen by Provider: 07/14/16 17:58 Mode Of Arrival: Car Home Medications: Home Medications Oxycodone Immediate Release [Oxycodone Immediate Release (OxyIR)] 5 mg PO Q6H PRN #40 tab 07/01/16 Levofloxacin [Levaquin] 500 mg PO DAILY #7 tab 07/14/16 Allergies/Adverse Reactions: Allergies Allergy/AdvReac Type Severity Reaction Status Date / Time No Known Allergies Allergy Verified 07/14/16 17:55 - History of Present Illness Onset: LAST NIGHT HPI: PT STATES THAT SHE DEVELOPED SHARP, STABBING PAIN IN RUQ LAST NIGHT, PT HAD GBUS 2 WEEKS AGO, STILL HAS CLAUDIO DRAIN IN PLACE, PT DENIES N/V/D, NO FEVER OR CHILLS, NO DIZZINESS OR WEAKNESS, STATES USING HER PAIN MEDS AT HOME WITH MINIMAL RELIEF. PT STATES PAIN IS WORSE WITH MOVEMENT AND SITTING UP. Pain Location: Reports: RUQ Pain Context: Reports: Spontaneous Pain Severity: Severe Pain Quality: Reports: Sharp, Stabbing Pain Radiation: Reports: No Radiation Last Menstrual Period: YESTERDAY : No Adult Abdominal History: Reports: Abdominal Surgery. Denies: Urolithiasis Female Abdominal History: Denies: UTI, Ectopic, PID, Urolithiasis Modifying Factors: improves with: Position, Movement Female Associated Signs & Symptoms: Denies: Nausea, Frequency, Vaginal Bleeding , Vomiting, Hematemesis, Anorexia, Diarrhea, Melena, Dysuria, Fever, Urgency, Hematuria, Chills, Vaginal Discharge Oral Intake: Normal Urinary Output: Normal ED Past Medical History - History Reviewed Yes Nurses notes reviewed and agree except as marked No Past Medical History: Yes Patient has no past medical history - Patient Medical History Neurological History: Denies: Cerebrovascular Accident, Seizures, Migraine, Dementia, Epilepsy, [place] Syndrome, Parkinson's, Metabolic encephalopathy, Multiple Sclerosis, Myasthenia Gravis, Toxic Encephalopathy Cardiac History: Denies: Coronary Artery Disease, Atrial Fibrillation, Hypertension, Congestive Heart Failure, Heart Attack, Cardiac Catheterization, CABG, Stress Test, Hypercholesterolemia, Internal Defibrillator, Pacemaker, Cardiomyopathy, Valvular Heart Disease, Syncope Respiratory History: Denies: Asthma, COPD, Bronchitis, Asbestosis, Aspiration Pneumonia, Cough, Chronic Bronchitis, Pneumonia, Emphysema, Pulmonary Embolism GI/ History: Denies: Renal Disease, Renal Failure, Renal (Kidney) Cancer, Kidney (Renal Surgery), Urinary Tract Infection, Kidney Stones, Liver Failure, Gastroesophageal Reflux, Ulcer, IBD, Diverticulosis, Pancreatitis, BPH Musculoskeletal History: Denies: Arthritis, Gout, Rheumatoid Arthritis, Osteoarthritis Psychological History: Denies: Depression, Substance Use Disorder Systemic History: Denies: Cancer, Anemia, Diabetes, Hyperthyroidism, Hypothyroidism, HIV, Lupus Surgical History: Reports: Cholecystectomy. Denies: CABG, Hysterectomy, Angioplasty, Cardiac Catheterization, Hernia Surgery, Tonsillectomy, Tonsillectomy/Adnoidectomy, Other - Family Medical History Denies: Hypertension, Diabetes, Cancer, Stroke, Cardiac Disorders, Respiratory Disorders, Renal Disease, Blood Disorders - Social Medical History Smoking Status: Never smoker Social History: Denies: Amphetamine Use, Barbiturate Use, Benzodiazipine Use, Cocaine Use, Heroin Use, Marijuana Use, Methadone Use, MDMA (Ecstasy) Use, Substance Use Disorder ETOH: Social Substance Abuse: None EDM Review of Systems - Review of Systems Constitutional: negative: Chills, Fever, Fatigue, Weakness Eyes: negative: Blurred Vision, Double Vision Ears: negative: Drainage Throat: negative: Pain Nose: negative: Congestion, Discharge Respiratory: negative: Cough, Shortness of Breath, Wheezing Cardiovascular: negative: Chest Pain, Palpitations Gastrointestinal: Pain. negative: Diarrhea, Nausea, Vomiting Genitourinary: negative: Dysuria, Frequency Neurological: negative: Dizziness, Headache, Numbness, Weakness Musculoskeletal: No Symptoms Reported Integumentary: No Symptoms Reported - Physical Exam Constitutional: Alert (Awake), No apparent distress Oriented to: Time, Person, Place Last recorded Vital Signs: Last Vital Signs Temp 97.5 F 07/14/16 17:50 Pulse 60 07/14/16 18:45 Resp 20 07/14/16 18:45 BP 111/55 L 07/14/16 18:45 Pulse Ox 100 07/14/16 18:45 Oxygen Pulse Oxygen Saturation 100 O2 Device Room Air Oxygen Flow Rate Fraction of Inspired Oxygen ( FIO2) - HEENT Head: Normal ( normocephalic) Eye Exam: Normal (PERRL, EOMI, Sclera white) Oropharynx: Normal (Pharynx:Moist without exudate,Gums-no swelling) Tympanic Membrane: Normal ENT EAC: Normal TMJ: Normal Nose: No Symptoms Reported (septum midline) Neck: Normal (FROM, trachea at midline) - Respiratory/Cardiovascular Respiratory: Normal - CTA (BBS clear to auscultation without adventitious sounds ) Cardiovascular: Normal (RRR without murmur, gallop or rub) - GI Auscultation: Normal (NABS) Palpation: Normal (Soft,No rebound or guarding, non distended) Tenderness: Moderate, RUQ, Other (CLAUDIO DRAIN IN PLACE, SMALL AMOUNT OF SEROSAINGUIONOUS DRAINAGE NOTED, DRESSING CLEAN AND DRY) Macario's Sign: Negative - Musculoskeletal Back: Normal (Non-Tender) Extremities: Normal (Normal tone, Pulses 2+ No cyanosis or edema, FROM) - Integumentary Skin: Normal, Warm, Dry Lymphatics: Normal (no adenopathy) - Neurologic Memory Impaired: Normal Motor Function: Normal (Normal tone, Pulses 2+ No cyanosis or edema, FROM) Cranial Nerve: Normal (CN II-X11 intact sensation, strength 5/5) Cerebellar: Normal Mood Description: Normal Perception: Normal - Differential Diagnosis Bowel Obstruction, Diverticulitis, IBS, Pancreatitis, UTI - Re-evaluation Re-evaluation 1 Re-evaluation Time: 19:45 (PAIN IMPROVED) Re-evaluation 2 Re-evaluation Time: 20:19 (STABLE, RESULTS AND INSTRUCTIONS GIVEN WITH ASSISTANCE OF HOSPTIAL PLANT AND MAINTENANCE TECHNICIAN, PT VERBALIZED UNDERSTANDING OF ALL INSTRUCTIONS) - Results 07/14/16 18:20 07/14/16 18:50 WBC 12.0 xk/uL (3.8-10.8) H 07/14/16 18:20 RBC 4.69 xM/uL (4.20-5.40) 07/14/16 18:20 Hgb 12.7 g/dL (12.0-16.0) 07/14/16 18:20 Hct 38.2 % (36-47) 07/14/16 18:20 MCV 81 fL (81-99) 07/14/16 18:20 MCH 27.2 pg (27-32) 07/14/16 18:20 MCHC 33.4 g/dl (33-36) 07/14/16 18:20 RDW 13.6 % (11.5-14.5) 07/14/16 18:20 Plt Count 285 xk/uL (130-400) 07/14/16 18:20 MPV 8.1 fL (7.4-10.4) 07/14/16 18:20 Neut % (Auto) 73.6 % (45-76) 07/14/16 18:20 Lymph % (Auto) 15.2 % (17-44) L 07/14/16 18:20 [place] % (Auto) 6.0 % (3-10) 07/14/16 18:20 Eos % (Auto) 4.4 % (0-5) 07/14/16 18:20 Baso % (Auto) 0.8 % (0-2) 07/14/16 18:20 Absolute Neuts (auto) 8.76 xk/uL (1.7-8.2) H 07/14/16 18:20 Absolute Lymphs (auto) 1.80 xk/uL (0.65-4.75) 07/14/16 18:20 Sodium 138 mEq/L (137-146) 07/14/16 18:50 Potassium 3.7 mEq/L (3.5-5.1) 07/14/16 18:50 Chloride 103 mEq/L (98-107) 07/14/16 18:50 Carbon Dioxide 26 mMOL/L (22-33) 07/14/16 18:50 Anion Gap 13 mEq/L (8-16) 07/14/16 18:50 BUN 9 MG/DL (7-17) 07/14/16 18:50 Creatinine 0.60 MG/DL (0.52-1.04) 07/14/16 18:50 Estimated GFR (MDRD) > 60 mL/min (>=60) 07/14/16 18:50 Glucose 92 MG/DL (70-99) 07/14/16 18:50 Calculated Osmolality 265 MOs/Kg (270-290) L 07/14/16 18:50 Calcium 8.6 MG/DL (8.4-10.2) 07/14/16 18:50 Corrected Calcium 8.9 MG/DL (8.4-10.2) 07/14/16 18:50 Total Bilirubin 0.6 MG/DL (0.2-1.3) 07/14/16 18:50 AST 23 IU/L (14-36) 07/14/16 18:50 ALT 46 IU/L (9-52) 07/14/16 18:50 Alkaline Phosphatase 89 IU/L (38-126) 07/14/16 18:50 Total Protein 6.7 G/DL (6.3-8.2) 07/14/16 18:50 Albumin 3.7 G/DL (3.5-5.0) 07/14/16 18:50 Lipase 72 U/L (23-300) 07/14/16 18:50 Lab Results 07/14/16 07/14/16 18:50 18:20 WBC 12.0 H RBC 4.69 Hgb 12.7 Hct 38.2 MCV 81 MCH 27.2 MCHC 33.4 RDW 13.6 Plt Count 285 MPV 8.1 Neut % (Auto) 73.6 Lymph % (Auto) 15.2 L [place] % (Auto) 6.0 Eos % (Auto) 4.4 Baso % (Auto) 0.8 Absolute Neuts (auto) 8.76 H Absolute Lymphs (auto) 1.80 Sodium 138 Potassium 3.7 Chloride 103 Carbon Dioxide 26 Anion Gap 13 BUN 9 Creatinine 0.60 Estimated GFR (MDRD) > 60 Glucose 92 Calculated Osmolality 265 L Calcium 8.6 Corrected Calcium 8.9 Total Bilirubin 0.6 AST 23 ALT 46 Alkaline Phosphatase 89 Total Protein 6.7 Albumin 3.7 Lipase 72 Decision Time to Discharge: 20:20 - Departure Disposition: Home Condition: Stable Final Diagnosis: Abdominal pain Instructions: Acute Abdominal Pain (ED) Education/Counseling Given To: Patient Education/Counseling Given Regarding: Diagnosis, Treatment, Prognosis, Follow Up Referrals: Franklyn Santos DO [Staff Physician] - One Week Prescriptions: Levofloxacin [Levaquin] 500 mg PO DAILY #7 tab Additional Instructions: RETURN TOMORROW SCHEDULED FOR YOUR HIDA SCAN, CALL DR SANTOS IN THE MORNING TO ARRANGE FOLLOW UP APPOINTMENT FOR OR WEDNESDAY. RETURN TO THE ED FOR ANY WORSENING SYMPTOMS OR CONCERNS. - Physician Consulted Surgery Time Called: 20:10 Provider Called: Franklyn Santos Time Curtain Hemmer Automatic Returned Call: 20:10 (LEVAQUIN, PAIN MED, FOLLOW UP IN OFFICE WEDNESDAY OR WEDNESDAY)
[2016-07-14] MEDS ORDERED: NS 1,000 ML IV ONE (18:09)
[2016-07-14] MEDS ORDERED: MORPHINE 4 MG/ML INJECTION IV ONE (18:09)
[2016-07-14] MEDS ORDERED: ONDANSETRON HCL 4 MG/2 ML VIAL IV ONE (18:09)
[2016-07-14 18:36] LABS: AUTOMATED BASOPHIL 0.8 % (0-2); AUTOMATED EOSINOPHIL 4.4 % (0-5); AUTOMATED LYMPH 15.2 % (17-44); AUTOMATED NEUTROPHIL 73.6 % (45-76); MPV 8.1 fL (7.4-10.4)
[2016-07-14] MEDS ORDERED: Pharmacy Review for Metformin - IV Contrast Given SCH (19:00)
[2016-07-14 19:08] LABS: BLOOD UREA NITROGEN 9 MG/DL (7-17); CALC CORRECTED 8.9 MG/DL (8.4-10.2); CALCIUM 8.6 MG/DL (8.4-10.2); CALCULATED OSMOLALITY 265 MOs/Kg (270-290); CHLORIDE 103 mEq/L (98-107); GLUCOSE 92 MG/DL (70-99); SODIUM LEVEL 138 mEq/L (137-146); TOTAL PROTEIN 6.7 G/DL (6.3-8.2)
--- NOTE | 2016-07-14 20:09 | DIRPT ---
CLINICAL DATA: 41-year-old female with right-sided abdominal pain for 1 day. Cholecystectomy 2 weeks ago. EXAM: CT ABDOMEN AND PELVIS WITH CONTRAST TECHNIQUE: Multidetector CT imaging of the abdomen and pelvis was performed using the standard protocol following bolus administration of intravenous contrast. CONTRAST: 80 cc intravenous Isovue 370 COMPARISON: 06/27/2016 CT FINDINGS: Lower chest: Minimal bibasilar atelectasis identified. Hepatobiliary: The patient is status post cholecystectomy. A small amount of fluid is noted within the lateral right abdomen and adjacent to the liver. A percutaneous surgical drain is noted with tip along the posterior lower right liver. There is no evidence of biliary dilatation. Pancreas: Unremarkable. Spleen: Unremarkable Adrenals/Urinary Tract: The kidneys, adrenal glands and bladder are unremarkable. Stomach/Bowel: There is no evidence of bowel obstruction or definite focal bowel wall thickening. Vascular/Lymphatic: No enlarged lymph nodes or abdominal aortic aneurysm. Reproductive: An IUD within the uterus is noted. There is no evidence of adnexal mass. Other: Small amount of free fluid within the pelvis is noted. There may be a small amount of fluid in the left mesentery. Musculoskeletal: No acute or suspicious abnormalities identified. IMPRESSION: Small amount of nonspecific free fluid within the right abdomen and within the pelvis. Consider evaluation of percutaneous catheter drainage if there is clinical suspicion for bile leak or infection. If there clinical indication for evaluation of bile leak, consider nuclear medicine study (HIDA). No other significant abnormalities. Electronically Signed By: Eric Gandhi M.D. On: 07/14/2016 20:06
[2016-07-14] MEDS ORDERED: LEVOFLOXACIN 500 MG TAB PO ONE (20:19)
[2016-07-14] MEDS ORDERED: OXYCODONE HCL 5 MG TABLET PO ONE (20:19)
[2016-07-14 20:46] VITALS: BP 108/62; PULSE 84
== END 2016-07-14 20:50 | disposition home or self-care (01) ==
LOC: ED 17:36
DX: R10.9 Unspecified abdominal pain (principal)
CPT/HCPCS: 36415; 74177; 80053; 83690; 85025; 96361; 96374; 96375; 99284; A9698; J2270; J2405; J3490